=== PATIENT | male | born 1960 | race Caucasian/White ===

== ENCOUNTER 2020-01-23 09:42 | Inpatient (IN) | payer SELFPAY ==
[2020-01-23] VITALS (8 sets, daily range): BP systolic 108–139; BP diastolic 69–74
[~2020-01-23] VITALS: Ht 182.9 cm; Wt 67.1 kg
[~2020-01-23 09:42] MED LIST: ETODOLAC ER400 MG PO; ZESTRIL,PRINIVIL5 MG PO
[2020-01-23 09:57] LABS: HEMATOCRIT 42.7 % (42.0-52.0); MEAN CELL VOLUME 100.7 fl (80.0-94.0); MEAN CORPUSCULAR HGB 34.2 pg (27.0-31.0); PLATELET COUNT AUTOMATED 205 10*3/uL (130-400); RED BLOOD COUNT 4.24 10*6/uL (4.50-5.90); RED CELL DISTRI WIDTH 12.7 % (0-14.5); WHITE BLOOD COUNT 9.5 10*3/uL (4.8-10.8)
[2020-01-23 10:07] LABS: ACT PARTIAL THROMBO TIME 27.5 SECONDS (20.0-32.1)
[2020-01-23 10:14] LABS: BASOPHILS 1 % (0-1); PLATELET SUFFICIENCY NORMAL (NORMAL); TOTAL CELLS COUNTED 100 #CELLS
[2020-01-23 10:20] LABS: ALBUMIN 3.1 gm/dl (3.1-4.5); ALKALINE PHOSPHATASE 54 U/L (45-117); BUN 12 mg/dl (7-24); CHLORIDE 102 mmol/L (98-107); CREATININE 0.64 mg/dL (0.70-1.30); SGOT/AST 31 IU/L (3-35); SGPT/ALT 34 U/L (12-78); SODIUM 136 mmol/L (136-145); TOTAL PROTEIN 6.6 gm/dL (6.4-8.2)
[2020-01-23 10:23] LABS: TROPONIN I < 0.015 ng/ml (<0.045)
--- NOTE | 2020-01-23 12:13 | NUR ---
RESTING IN NO DISTRESS AT THIS TIME. CALL LIGHT IN REACH.
--- NOTE | 2020-01-23 14:10 | NUR ---
A 59, admitted to , under the services of VICENTE Zepeda DO with a diagnosis of PNEUMONIA. Chief complaint is LEFT SIDED CHEST PAIN X 1 DAY. Patient arrived via wheel chair from ER. Monitor applied. Initial assessment completed. Vital signs taken and recorded. VICENTE ZEPEDA DO notified of admission to the unit. Orders received. See assessment for past medical history, medications and allergies. Patient and/or family oriented to unit. [facility] visitation policy reviewed. Clothing/patient valuable form completed. JAKY SLOAN
--- NOTE | 2020-01-23 14:12 | NUR ---
HERE AND AWARE OF NEW CONSULT AND SAW PATIENT IN THE ER.
--- NOTE | 2020-01-23 15:38 | NUR ---
PT INSTRUCTED ON FLUTTER. PT TOLERATED WELL. PT CAN DO ON HIS OWN
--- NOTE | 2020-01-23 20:38 | NUR ---
CHART CHECK COMPLETE.
[2020-01-24] VITALS: BP 129/70
--- NOTE | 2020-01-24 04:00 | NUR ---
DR. GOMES AWARE OF +BLOOD CULTRE. WILL TAKE A LOOK. REPEAT CULTURES ORDERED.
--- NOTE | 2020-01-24 05:00 | NUR ---
DR. GOMES AWARE OF +BLOOD CULTRE.
[2020-01-24 06:21] LABS: HEMATOCRIT 37.7 % (42.0-52.0); MEAN CELL VOLUME 100.5 fl (80.0-94.0); MEAN CORPUSCULAR HGB 34.1 pg (27.0-31.0); MEAN PLATELET VOLUME 10.2 fl (9.6-12.3); PLATELET COUNT AUTOMATED 184 10*3/uL (130-400); RED BLOOD COUNT 3.75 10*6/uL (4.50-5.90); RED CELL DISTRI WIDTH 12.8 % (0-14.5); WHITE BLOOD COUNT 9.5 10*3/uL (4.8-10.8)
[2020-01-24 06:22] LABS: ALBUMIN 2.2 gm/dl (3.1-4.5); ALKALINE PHOSPHATASE 58 U/L (45-117); BUN 13 mg/dl (7-24); CHLORIDE 105 mmol/L (98-107); CHOLESTEROL 146 mg/dL (<200); CREATININE 0.59 mg/dL (0.70-1.30); FREE T4 1.23 ng/dl (0.76-1.46); HDL CHOLESTEROL 114 mg/dl (40-60); LDL CHOLESTEROL 25 mg/dL (9-159); POTASSIUM 3.2 mmol/L (3.5-5.1); SGOT/AST 19 IU/L (3-35); SGPT/ALT 26 U/L (12-78); SODIUM 133 mmol/L (136-145); TOTAL PROTEIN 5.7 gm/dL (6.4-8.2); TRIGLYCERIDES 37 mg/dl (<150); VLDL CHOLESTEROL 7 mg/dL (6-40)
[2020-01-24 06:57] LABS: VITAMIN D, 25-HYDROXY 38.7 ng/mL (30-100)
--- NOTE | 2020-01-24 07:30 | NUR ---
PATIENT RESTING IN BED. VOICES NO CONCERNS. DENIES ANY PAIN AT THIS TIME. ASSESSMENT COMPLETE. RESPS EASY AND REGULAR. CALL LIGHT IN REACH.
[2020-01-24 07:54] LABS: TOTAL CELLS COUNTED 100 #CELLS
[2020-01-24 07:55] LABS: PLATELET SUFFICIENCY NORMAL (NORMAL)
[2020-01-24 08:00] VITALS: BP 122/62
--- NOTE | 2020-01-24 08:10 | NUR ---
TYLENOL GIVEN FOR FEVER. WILL MONITOR.
--- NOTE | 2020-01-24 08:15 | NUR ---
NS X2 BAGS ORDERED. FIRST BAG HUNG AT THIS TIME INFUSING @ 100 ML/HR.
--- NOTE | 2020-01-24 08:16 | NUR ---
PATIENT STATES AFTER WAKING UP AND COUGHING HE IS HAVING SOME PAIN FROM THE COUGHING THAT GOES TO HIS BACK AND NECK. MEDICATED WITH PRN MORPHINE AT THIS TIME PER ORDER. WILL ASSESS EFFECTIVENESS. CALL LIGHT IN REACH.
--- NOTE | 2020-01-24 09:00 | NUR ---
Heating And Cooling Systems Engineer in to talk to patient. Patient states lives at home with girlfriend. There are no steps in the home. Physician: none at present Pharmacy: none Home health services: none Patient's level of ADLs: INDEPENDENT Patient has working utilities: all working DME: none Follow-up physician's appointment after d/c: will be made by hospitalist nurse director upon discharge with doctor of patient's choice Does patient want to access PORTAL?: no Discharge plan discussed with patient, he states he lives at home with girlfriend, he is independent in adls and ambulation, he states he works and drives, he states he will return home with discharged and denies any home needs, discussed with him no having any insurance and he stated he thought he did have insurance through his work, case management spoke to Kate from [employer] and informed her that patient thought he had insurance, Kate stated patient will have to call his employer and inquire about the insurance and get back to Kate from [employer]. case management will follow. ERIN HAM
--- NOTE | 2020-01-24 09:16 | NUR ---
PER PATIENT MORPHINE NOT VERY EFFECTIVE.
--- NOTE | 2020-01-24 10:56 | NUR ---
MEDICATED WITH PRN NORCO FOR CO CHEST PAIN FROM COUGHING THAT RADIATES TO BACK AND NECK. WILL ASSESS EFFECTIVENESS. CALL LIGHT IN REACH.
--- NOTE | 2020-01-24 11:56 | NUR ---
PER PATIENT NORCO EFFECTIVE.
[2020-01-24 12:00] VITALS: BP 120/68
[2020-01-24 16:00] VITALS: BP 118/68
--- NOTE | 2020-01-24 16:11 | NUR ---
MEDICATED WITH PRN NORCO AT THIS TIME FOR CO CHEST PAIN FROM COUGHING THAT RADIATES TO BACK AND NECK. WILL ASSESS EFFECTIVENES. CALL LIGHT IN REACH.
--- NOTE | 2020-01-24 17:11 | NUR ---
PER PATIENT NORCO EFFECTIVE.
[2020-01-24 20:00] VITALS: BP 133/70
--- NOTE | 2020-01-24 20:00 | NUR ---
DR. GOMES CALLED FLOOR IN REGARDS TO PATIENT FAMILY REQUESTING TRANSFER. INFORMED DR. GOMES THAT THIS RN HAD NO INCLINATION OF PATIENT FAMILY WANTING TO BE TRANSFERED. DAUGHTER IS RN IN EMERGENCY DEPARTMENT. DR. GOMES WILL CONTACT DAUGHTER AND UPDATE RN.
--- NOTE | 2020-01-24 20:25 | NUR ---
ASSUMED CARE OF PATIENT. ASSESSMENT IS COMPLETE. RESPERS EASY AND REGULAR. BED IS LOW, LOCKED, AND CALL LIGHT IS WITHIN REACH. WILL CONTINUE TO MONITOR, SEE INTERVENTIONS.
--- NOTE | 2020-01-24 20:40 | NUR ---
DR. GOMES CALLED RN, PATIENT FAMILY WOULD LIKE PATIENT TRANSFERED TO [facility]. PATIENT IN AGREEANCE WITH THIS.
--- NOTE | 2020-01-24 20:49 | NUR ---
PATIENT CLOTHING TAKEN TO [facility] TO BE WASHED. SMELLED OF URINE.
--- NOTE | 2020-01-24 21:00 | NUR ---
PATIENT REMOVED BOTH IV'S AND TOOK OFF FAST FOOD SALES ASSISTANT. DRESING APPLIED. REFUSING ANOTHER IV SITE AT THIS TIME AND FAST FOOD SALES ASSISTANT STATING "THEY CAN PUT NEW ON ONCE I GET WHERE IM GETTING." CALL LIGHT IS WITHIN REACH.
[2020-01-25] VITALS: BP 125/72
--- NOTE | 2020-01-25 00:30 | NUR ---
IV started right hand with #22 angiocath after 1 attempt. The IV site was prepped with Chloraprep. Heparin lock attached. Sterile dressing applied. Patient tolerated precedure well. Procedure performed according to [facility] policy & procedure. YOSELIN SHELBY
--- NOTE | 2020-01-25 00:38 | NUR ---
PRN ATIVAN GIVEN AT THIS TIME FOR ANXIETY PER ORDER.
[2020-01-25 00:43] LABS: ABG BASE EXCESS 0.9 mmol/L (-2.0-2.0); ARTERIAL BLOOD GAS PH 7.437 (7.35-7.45)
--- NOTE | 2020-01-25 01:02 | NUR ---
Discharge instructions reviewed with patient/family. Patient receptive and verbalizes understanding. Follow-up care arranged. Written instructions given to patient/family. [facility] HERE TO OBTAIN PATIENT. YOSELIN SHELBY
--- NOTE | 2020-01-25 01:11 | NUR ---
REPORT CALLED TO SIMON AT [facility].
== END 2020-01-25 01:02 | disposition short-term general hospital (02) | DRG 871 ==
LOC: ED 09:42 → EDHOLD 12:43 → 4E 13:05
PROVIDERS: Nurse Practitioner Family; Registered Nurse; Student in an Organized Health Care Education/Training Program; ADMIT Emergency Medicine
DX: A41.89 Other specified sepsis (principal); J15.9 Unspecified bacterial pneumonia; E44.0 Moderate protein-calorie malnutrition; E87.2 Acidosis; R65.20 Severe sepsis without septic shock; E87.6 Hypokalemia; E83.42 Hypomagnesemia; F10.20 Alcohol dependence, uncomplicated; E83.51 Hypocalcemia; I10 Essential (primary) hypertension; E83.39 Other disorders of phosphorus metabolism; R59.1 Generalized enlarged lymph nodes; Y90.9 Presence of alcohol in blood, level not specified; Z87.891 Personal history of nicotine dependence; Z80.42 Family history of malignant neoplasm of prostate; Z80.1 Family history of malignant neoplasm of trachea, bronchus and lung; Z68.20 Body mass index [BMI] 20.0-20.9, adult

== ENCOUNTER 2023-03-29 13:00 | Emergency (ER) | payer SELFPAY ==
[~2023-03-29] VITALS: Ht 182.8 cm; Wt 70.3 kg
[2023-03-29 15:25] LABS: BASO # 0.1 10*3/uL (0.0-0.1); BASO % 0.8 % (0.0-1.0); EOS % 0.1 % (1.0-4.0); HEMATOCRIT 39.6 % (42.0-52.0); LYMPH # 0.8 10*3/uL (1.3-4.4); LYMPH % 10.4 % (27.0-41.0); MEAN CELL VOLUME 97.1 fl (80.0-94.0); MEAN CORPUSCULAR HGB 33.3 pg (27.0-31.0); MEAN CORPUSCULAR HGB CONC 34.3 g/dl (33.0-37.0); MEAN PLATELET VOLUME 9.1 fl (9.6-12.3); MONO # 0.8 10*3/uL (0.1-1.0); MONO % 9.9 % (3.0-9.0); NEUT # 6.1 10*3/uL (2.3-7.9); NEUT % 78.5 % (47.0-73.0); PLATELET COUNT AUTOMATED 304 10*3/uL (130-400); RED BLOOD COUNT 4.08 10*6/uL (4.50-5.90); RED CELL DISTRI WIDTH 12.2 % (0-14.5); WHITE BLOOD COUNT 7.7 10*3/uL (4.8-10.8)
[2023-03-29 15:46] LABS: ALKALINE PHOSPHATASE 40 U/L (46-116); BUN 6 mg/dl (9-23); CHLORIDE 104 mmol/L (98-107); POTASSIUM 3.7 mmol/L (3.4-5.1); SGPT/ALT 12 U/L (10-49); TOTAL PROTEIN 6.7 gm/dL (6.0-8.0)
[2023-03-29] MEDS ORDERED: AMOX-CLAV 875-1 EACH PO (17:45)
== END 2023-03-29 17:48 | disposition home or self-care (01) ==
LOC: ED 13:00
PROVIDERS: Nurse Practitioner
DX: J32.9 Chronic sinusitis, unspecified (principal); M54.2 Cervicalgia; Z98.890 Other specified postprocedural states; F10.10 Alcohol abuse, uncomplicated; F12.90 Cannabis use, unspecified, uncomplicated; Z20.822 Contact with and (suspected) exposure to COVID-19

== ENCOUNTER → 2023-07-31 | Outpatient (CLI) | payer MEDICARE ==
[~2023-07-31] MED LIST changes: +AMOX-CLAV 875-1 EACH PO
== END | disposition home or self-care (01) ==
LOC: CT 01:22
PROVIDERS: ATTEND Family Medicine
DX: R91.1 Solitary pulmonary nodule (principal); R93.89 Abnormal findings on diagnostic imaging of other specified body structures

== ENCOUNTER 2023-08-10 13:14 | Emergency (ER) | payer MEDICARE ==
[~2023-08-10] VITALS: Ht 182.8 cm; Wt 70.3 kg
[2023-08-10] MEDS ORDERED: ACETAMINOPHEN 325 MG TAB PO ONE (13:35)
[2023-08-10] MEDS ORDERED: OXYCODONE HCL (IR) 5 MG TAB PO ONE (13:45)
[2023-08-10] MEDS ORDERED: HYDROCODONE-AC1 EAC1 PO (14:23)
== END 2023-08-10 14:37 | disposition home or self-care (01) ==
LOC: ED 13:14
DX: S82.62XA Displaced fracture of lateral malleolus of left fibula, initial encounter for closed fracture (principal); E83.51 Hypocalcemia; E83.42 Hypomagnesemia; I10 Essential (primary) hypertension; Z98.890 Other specified postprocedural states; F10.10 Alcohol abuse, uncomplicated; F12.90 Cannabis use, unspecified, uncomplicated; X50.1XXA Overexertion from prolonged static or awkward postures, initial encounter; Y93.89 Activity, other specified; Y92.89 Other specified places as the place of occurrence of the external cause; Y99.8 Other external cause status

== ENCOUNTER → 2023-08-25 | Outpatient (CLI) | payer MEDICARE ==
[~2023-08-25] MED LIST changes: +HYDROCODONE-AC1 EAC1 PO
== END | disposition home or self-care (01) ==
LOC: ORTHO 01:30
PROVIDERS: ATTEND Orthopaedic Surgery
DX: S82.65XD Nondisplaced fracture of lateral malleolus of left fibula, subsequent encounter for closed fracture with routine healing (principal); M79.89 Other specified soft tissue disorders; X58.XXXD Exposure to other specified factors, subsequent encounter